=== PATIENT | male | born 1960 | race Caucasian/White ===

== ENCOUNTER 2020-01-23 11:37 | Emergency (ER) | payer BC ==
[2020-01-23] MEDS ORDERED: Pantoprazole 80 MG in Sodium Chloride 0.9% 100 ML IV SCH (12:15)
[2020-01-23] MEDS ORDERED: Pantoprazole 40 MG Vial IVPUSH ONE (12:15)
[2020-01-23] MEDS ORDERED: Sodium Chloride 0.9% 1,000 ML IV SCH (12:15)
--- NOTE | 2020-01-23 12:20 | EDM.PDOC ---
ED HPI GENERAL MEDICAL PROBLEM - General Chief Complaint: Gastrointestinal Problem Stated Complaint: BLACK STOOL/VOMITING Time Seen by Provider: 01/23/20 12:14 Source of Information: Reports: Patient History Limitations: Reports: No Limitations - History of Present Illness INITIAL COMMENTS - FREE TEXT/NARRATIVE: 59-year-old male presents to the ED with chief complaint of dark black tarry stool passage x3 days. He has had 1 dark black tarry stool per day for the last 3 days. He did use Pepto-Bismol last evening for the first time. He has been having some mild dyspepsia symptoms recently. He does use Motrin and Aleve on a intermittent basis but stopped these about 10 days ago. His med list indicates that he is on meloxicam 7.5 mg daily. He is still taking this medication. Did have some yogurt this morning with the tablet. He has been on a combination of proton pump inhibitors including Nexium but currently has not been taking anything. He has a history of GERD. Most recently he was tried on sucralfate 1 g QID. Dates he does not feel dizzy upon standing but does feel rather weak and dyspneic on minimal exertion. No past history of upper GI bleeding. Has had a colonoscopy many years ago in [place]. A provider apparently has set him up for a colonoscopy and EGD I believe in [place] somewhere around the or 06 February. He denies any recent weight loss or change in appetite. Denies any abdominal cramping pain no previous abdominal surgery. Onset: Sudden Onset Date: 01/21/20 (Today is the third day of passage of dark black tarry stool.) Duration: Day(s):, Constant Location: Reports: Abdomen (Passage of dark black tarry stool or melena stool x3 days) Quality: Reports: Other (Mild upper abdominal epigastric burning discomfort intermittently.) Severity: Moderate Improves with: Reports: None Worsens with: Reports: None Context: Reports: Other (Continuous occurrence). Denies: Activity, Exercise, Lifting, Sick Contact, Trauma Associated Symptoms: Reports: No Other Symptoms, Cough, cough w sputum (Chronic cough from cigarette smoking.), Malaise, Shortness of Breath, Weakness (A little weak in his lower extremities with walking). Denies: Confusion, Chest Pain, Diaphoresis, Fever/Chills, Headaches ( Sputum production intermittently), Loss of Appetite, Nausea/Vomiting, Rash (Times on exertion), Seizure, Syncope Treatments SUPER[employer]ICATION: Reports: Other (see below) (Pepto-Bismol last night) Right Lower Abdomen Pain Score (Numeric/FACES): 0 - Related Data Allergies Allergy/AdvReac Type Severity Reaction Status Date / Time Penicillins Allergy Cannot Verified 01/23/20 11:52 Remember Home Meds: Home Meds Gabapentin [Neurontin] 300 mg PO DAILY 01/23/20 [History] Lansoprazole [Prevacid] 30 mg PO ASDIRECTED #42 capsule. 01/23/20 [Rx] Meloxicam 7.5 mg PO DAILY PRN 01/23/20 [History] [place]-3/DHA/Epa/Fish Oil [Fish Oil 500 MG Softgel] 300 mg PO DAILY 01/23/20 [History] Oxybutynin 5 mg PO DAILY 01/23/20 [History] Pantoprazole [ProTONIX IV] 40 mg PO DAILY 01/23/20 [History] Sucralfate 1 gram PO QID 01/23/20 [History] atorvaSTATin [Lipitor] 40 mg PO DAILY 01/23/20 [History] carvediloL [Carvedilol] 25 mg PO BID 01/23/20 [History] lisinopriL [Lisinopril] 10 mg PO DAILY 01/23/20 [History] Past Medical History Cardiovascular History: Reports: High Cholesterol, Hypertension Gastrointestinal History: Reports: Gastritis, GERD Genitourinary History: Reports: Other (See Below) (Urgency incontinence) Musculoskeletal History: Reports: Back Pain, Chronic (With sciatica in both upper legs at times more recently the left more so than the right.), Osteoarthritis Endocrine/Metabolic History: Reports: Obesity/BMI 30+ Social & Family History - Tobacco Use Tobacco Use Status *Q: Current Every Day Tobacco User Tobacco Use Within Last Twelve Months: Cigarettes (Pack per day. Is a [id number] history) - Alcohol Use Alcohol Use History: No ED ROS GENERAL - Review of Systems Review Of Systems: See Below Constitutional: Reports: Weakness, Fatigue. Denies: Fever, Chills, Decreased Appetite, Weight Loss HEENT: Reports: No Symptoms Respiratory: Reports: Shortness of Breath, Wheezing, Cough, Sputum. Denies: Pleuritic Chest Pain Cardiovascular: Reports: Blood Pressure Problem, Dyspnea on Exertion. Denies: Chest Pain (To brown sputum from cigarette smoking), Claudication, Edema, Lightheadedness, Orthopnea Endocrine: Reports: Fatigue (Times) GI/Abdominal: Reports: Abdominal Pain (He having some mild epigastric discomfort burning primarily.), Black Stool (Dark black melena stool for 3 days. 1/day). Denies: Nausea, Vomiting : Reports: Frequency, Urgency Musculoskeletal: Reports: Back Pain, Joint Pain, Other (Arthritic change primarily back and neck.) Skin: Reports: No Symptoms Neurological: Reports: Weakness. Denies: Confusion, Dizziness, Headache, Numbness, Paresthesia, Seizure, Syncope, Tingling, Tremors, Difficulty Walking Psychiatric: Reports: No Symptoms Hematologic/Lymphatic: Reports: No Symptoms Immunologic: Reports: No Symptoms ED EXAM, GI/ABD - Physical Exam Exam: See Below Exam Limited By: No Limitations General Appearance: Alert, WD/WN, No Apparent Distress, Other (Poor historian. Temperature is 36.7 heart rate was 80 in sinus respiratory rate 16 with O2 sats of 94 to 95% room air BP 148/90) Eyes: Bilateral: Normal Appearance (No blepharal pallor or scleral icterus.) Throat/Mouth: Normal Inspection, Other (Pharynx is diffusely erythematous from cigarette smoking.). No: Normal Teeth Head: Atraumatic, Normocephalic Neck: Normal Inspection, Supple, Non-Tender, Full Range of Motion. No: Carotid Bruit, Lymphadenopathy (L), Lymphadenopathy (R) Respiratory/Chest: No Respiratory Distress, No Accessory Muscle Use, Decreased Breath Sounds ( Of both upper anterior lungs that clears with coughing.), Rhonchi (Diffuse audible wheezing both mildly on inspiration but markedly on expiration bilaterally.), Wheezing. No: Lungs Clear, Normal Breath Sounds Cardiovascular: Normal Peripheral Pulses, Regular Rate, Rhythm, No Edema, No Gallop, No Murmur, No Rub GI/Abdominal Exam: Normal Bowel Sounds, Soft, Non-Tender, No Organomegaly, No Mass, Pelvis Stable, Other (Oertli obese. This limits ability to palpate solid organs.) Back Exam: Normal Inspection, Decreased Range of Motion (Pain throughout the lumbar spine on exam.) Extremities: No Pedal Edema, Other (Mild osteoarthritic change appreciated both knees.) Neurological: Alert, Oriented, CN II-XII Intact, Normal Cognition Psychiatric: Normal Affect, Normal Mood Skin Exam: Warm, Dry, Intact, Normal Color, No Rash #1 Interpretation EKG Date: 01/23/20 Time: 12:23 Rhythm: NSR Rate (Beats/Min): 77 [place]: Normal P-Wave: Enlarged QRS: Other (Letter left atrial hypertrophy early R wave transition V3 consider septal hypertrophy pattern) ST-T: Normal QT: Normal EKG Interpretation Comments: Borderline ECG Course - Vital Signs Last Recorded V/S: Last Vital Signs Temp 36.7 C 01/23/20 11:48 Pulse 79 01/23/20 11:48 Resp 16 01/23/20 11:48 BP 148/90 H 01/23/20 11:48 Pulse Ox 94 L 01/23/20 11:48 Orthostatic Blood Pressure [ 129/93 Standing] Orthostatic Blood Pressure [ 145/95 Sitting] Orthostatic Blood Pressure [ 135/94 Supine] - Orders/Labs/Meds Orders: Active Orders 24 hr Category Date Time Status Guaiac [OCCULT BLOOD DIAGNOSTIC] [OP] Stat Lab 01/23/20 12:14 Ordered PATIENT RETYPE [BBK] Routine Lab 01/23/20 14:05 Ordered URINALYSIS W/MICROSCOPIC [UA W/MICROSCOPIC] [URIN] Stat Lab 01/23/20 12:17 Ordered Labs: Laboratory Tests 01/23/20 01/23/20 01/23/20 Range/Units 12:25 12:25 12:25 WBC 7.87 (4.23-9.07) K/mm3 RBC 4.97 (4.63-6.08) M/mm3 Hgb 15.7 (13.7-17.5) gm/dl Hct 46.9 (40.1-51.0) % MCV 94.4 H (79.0-92.2) fl MCH 31.6 (25.7-32.2) pg MCHC 33.5 (32.2-35.5) g/dl RDW Std Deviation 45.1 H (35.1-43.9) fL Plt Count 208 (163-337) K/mm3 MPV 10.2 (9.4-12.3) fl Neut % (Auto) 55.5 (34.0-67.9) % Lymph % (Auto) 30.6 (21.8-53.1) % Foard % (Auto) 9.1 (5.3-12.2) % Eos % (Auto) 3.9 (0.8-7.0) Baso % (Auto) 0.8 (0.1-1.2) % Neut # (Auto) 4.36 (1.78-5.38) K/mm3 Lymph # (Auto) 2.41 (1.32-3.57) K/mm3 Foard # (Auto) 0.72 (0.30-0.82) K/mm3 Eos # (Auto) 0.31 (0.04-0.54) K/mm3 Baso # (Auto) 0.06 (0.01-0.08) K/mm3 ESR (0-15) mm/hr PT 11.4 (9.7-12.0) SECONDS INR 1.07 APTT 26.1 (21.7-31.4) SECONDS Sodium 139 (136-145) mEq/L Potassium 4.1 (3.5-5.1) mEq/L Chloride 102 (98-107) mEq/L Carbon Dioxide 25 (21-32) mEq/L Anion Gap 16.1 H (5-15) BUN 21 H (7-18) mg/dL Creatinine 1.1 (0.7-1.3) mg/dL Est Cr Clr Drug Dosing 83.03 mL/min Estimated GFR (MDRD) > 60 (>60) mL/min BUN/Creatinine Ratio 19.1 H (14-18) Glucose 102 (74-106) mg/dL Calcium 10.0 (8.5-10.1) mg/dL Magnesium 1.5 L (1.8-2.4) mg/dl Total Bilirubin 0.4 (0.2-1.0) mg/dL AST 21 (15-37) U/L ALT 30 (16-63) U/L Alkaline Phosphatase 61 (46-116) U/L C-Reactive Protein 0.2 (<1.0) mg/dL NT-Pro-B Natriuret Pep (0-125) pg/mL Total Protein 7.5 (6.4-8.2) g/dl Albumin 3.7 (3.4-5.0) g/dl Globulin 3.8 gm/dL Albumin/Globulin Ratio 1.0 (1-2) Blood Type Gel Antibody Screen 01/23/20 01/23/20 01/23/20 Range/Units 12:25 12:25 12:25 WBC (4.23-9.07) K/mm3 RBC (4.63-6.08) M/mm3 Hgb (13.7-17.5) gm/dl Hct (40.1-51.0) % MCV (79.0-92.2) fl MCH (25.7-32.2) pg MCHC (32.2-35.5) g/dl RDW Std Deviation (35.1-43.9) fL Plt Count (163-337) K/mm3 MPV (9.4-12.3) fl Neut % (Auto) (34.0-67.9) % Lymph % (Auto) (21.8-53.1) % Foard % (Auto) (5.3-12.2) % Eos % (Auto) (0.8-7.0) Baso % (Auto) (0.1-1.2) % Neut # (Auto) (1.78-5.38) K/mm3 Lymph # (Auto) (1.32-3.57) K/mm3 [place] # (Auto) (0.30-0.82) K/mm3 Eos # (Auto) (0.04-0.54) K/mm3 Baso # (Auto) (0.01-0.08) K/mm3 ESR 6 (0-15) mm/hr PT (9.7-12.0) SECONDS INR APTT (21.7-31.4) SECONDS Sodium (136-145) mEq/L Potassium (3.5-5.1) mEq/L Chloride (98-107) mEq/L Carbon Dioxide (21-32) mEq/L Anion Gap (5-15) BUN (7-18) mg/dL Creatinine (0.7-1.3) mg/dL Est Cr Clr Drug Dosing mL/min Estimated GFR (MDRD) (>60) mL/min BUN/Creatinine Ratio (14-18) Glucose (74-106) mg/dL Calcium (8.5-10.1) mg/dL Magnesium (1.8-2.4) mg/dl Total Bilirubin (0.2-1.0) mg/dL AST (15-37) U/L ALT (16-63) U/L Alkaline Phosphatase (46-116) U/L C-Reactive Protein (<1.0) mg/dL NT-Pro-B Natriuret Pep 26 (0-125) pg/mL Total Protein (6.4-8.2) g/dl Albumin (3.4-5.0) g/dl Globulin gm/dL Albumin/Globulin Ratio (1-2) Blood Type A NEGATIVE Gel Antibody Screen Negative Meds: Medications Discontinued Medications Generic Name Dose Route Start Last Admin Trade Name Abdonq PRN Reason Stop Dose Admin Sodium Chloride 1,000 mls @ 150 mls/hr 01/23/20 12:15 01/23/20 13:32 Normal Saline IV 150 mls/hr ASDIRECTED JENNIFER Administration Pantoprazole Sodium 80 mg/ 100 mls @ 10 mls/hr 01/23/20 12:15 01/23/20 13:34 Sodium Chloride IV 10 mls/hr Q10H JENNIFER Administration Pantoprazole Sodium 80 mg 01/23/20 12:15 01/23/20 13:35 Protonix Iv IVPUSH 01/23/20 12:16 80 mg BOLUS ONE Administration - Radiology Interpretation Free Text/Narrative:: 59-year-old male presents to the ED with a 3-day history of dark black melena stools passage once per day including this morning. Of note he did take Pepto- Bismol last evening for the first time. Patient has had dyspepsia symptoms off and on for many years. This includes GERD. He has been off and on numerous proton pump inhibitors for many years. Recently tried on sucralfate 1 g 4 times daily but is not using this. He has a history of arthritis primarily involving diffuse low back pain with radiculopathy into his lower extremities. He uses a large amount of Motrin primarily but stopped this 10 days ago at the request of his physician. His med list suggest that he is also on meloxicam 18 mg a day. Clinically he appears to be stable from upper GI blood loss. At no time he has had any reported hematemesis. - Re-Assessments/Exams Free Text/Narrative Re-Assessment/Exam: 01/23/20 12:37 59-year-old male presents to the ED with a 3-day history of dark black melena stools suggesting an upper GI blood loss. He has been taking Motrin and Aleve off and on for many years for low back pain and sciatica. He is also listed on being on meloxicam 7.5 mg a day and he did take 1 this morning. He did take some Pepto-Bismol last night but he was already having dark black tarry stools before this. He is having 1 black tarry stool per day. Clinically he does not appear to be anemic. Plan orthostatic BPs to be done. Routine labs and a chest x-ray to be done. He has a smoker and clinically has significant emphysematous change. Of note his orthostatic BP lying is 135/94 with a heart rate of 75. Sitting his BP is 145/92 with a heart rate of 83 and standing BP dropped slightly to 129/93 with a heart rate of 85. 01/23/20 13:32 Chest x-ray reveals unremarkable lung parenchyma with no consolidation. No pleural effusion no pneumothorax. Heart and mediastinum are normal with no cardiomegaly.PT is 11.4 with an INR of 1.07 PTT is 26.1. 01/23/20 14:13 chest x-ray done portably reveals mildly hyperinflated lung lundberg bilaterally. Mild cardiomegaly. Evidence of the right pulmonary artery appreciated. No vascular congestion no pleural effusion no pneumothorax. S edimentation rate is 6 01/23/20 14:25 Sodium is 139 with a potassium of 4.1 chloride 102 with a bicarb of 25. Anion gap is slightly elevated at 16.1. BUN is 21 with a creatinine of 1.1 and a GFR greater than 60. BUN/creatinine ratio is 19.1. Glucose is 102 calcium is 10.0 magnesium slightly low at 1.5 liver function is normal C- reactive protein 0.2 BNP is 26 total protein 7.5 with an albumin fraction of 3.7. Therefore the patient appears to be a stable upper GI bleed. He is already prescheduled by his primary care provider in [place] for a colonoscopy and upper GI endoscopy on February 05 I believe. This is to be done in [place]. At this point time he is stable and I am going to put him on Prevacid 30 mg twice daily for 1 week bedtime and morning and then 30 mg at bedtime until he is followed up by gastroenterology to make sure he does not have H. pylori gastritis to have caused a peptic ulcer. Less likely could have a lesion in the descending colon Departure - Departure Time of Disposition: 14:26 Disposition: Home, Self-Care 01 Condition: Fair Clinical Impression: Gastrointestinal bleeding, upper Adverse effects of medication Qualifiers: Encounter type: initial encounter Qualified Code(s): T50.905A - Adverse effect of unspecified drugs, medicaments and biological substances, initial encounter - Discharge Information *PRESCRIPTION DRUG MONITORING PROGRAM REVIEWED*: Not Applicable *COPY OF PRESCRIPTION DRUG MONITORING REPORT IN PATIENT CHELI: Not Applicable Prescriptions: Lansoprazole [Prevacid] 30 mg PO ASDIRECTED #42 capsule.dr Instructions: Gastrointestinal Bleeding, [id number] Referrals: Sharda Mckinney, PRESENTATION SPECIALIST [Primary Care Provider] - Forms: ED Department Discharge Additional Instructions: Evaluation in the emergency room today in regards to passage of dark black tarry stools for the last 3 days indicating a suspect upper GI blood loss most likely from an ulcer in the stomach or first part of the small bowel called the duodenum. This in turn is most likely due to medication adverse effects i.e. Motrin Aleve and medication meloxicam that you were taking for chronic back pain and arthritis. All of these medicines are to be discontinued and we did take away the meloxicam from your bag of medications that your request. You were treated in the emergency room with intravenous fluids and IV Protonix 40 mg and IV Protonix drip. Diet is to be fairly light over the next couple of days as there would be a blood clot on an ulcer in the stomach that could be dislodged by hard food. Suggest diet to be quite soft things like bread, mashed potatoes, soups etc. No alcohol is to be used at all for the next 2 weeks. Tylenol is okay to take for pain if needed as it will not cause ulceration. Medication is to be Prevacid 30 mg in the morning and at bedtime for the next week and then once at bedtime for another 5 weeks to heal an ulcer completely. Note: cigarette smoking also delays and also her ability to heal. Continue all other medications as previously prescribed. Continue the sucralfate 4 times daily for the next 5 days but after that you could stop it. Wrongly encouraged to follow- up with truck crane operator helper for colonoscopy and upper GI endoscopy in early February as previously booked. You would need to return to our hospital if you develops bright red bleeding per rectum or dark black tarry stools more than 3 times in 1 day. Usually with the above medication and stopping the meloxicam stools may be black for another day or 2 and then usually turn back to a normal color. Sepsis Event Note (ED) - Evaluation Sepsis Screening Result: No Definite Risk - Focused Exam Vital Signs: Vital Signs Temp Pulse Resp BP Pulse Ox 01/23/20 11:48 36.7 C 79 16 148/90 H 94 L - My Orders Last 24 Hours: My Active Orders 01/23/20 12:14 Guaiac [OCCULT BLOOD DIAGNOSTIC] [OP] Stat 01/23/20 12:17 URINALYSIS W/MICROSCOPIC [UA W/MICROSCOPIC] [URIN] Stat 01/23/20 14:05 PATIENT RETYPE [BBK] Routine - Assessment/Plan Last 24 Hours: My Active Orders 01/23/20 12:14 Guaiac [OCCULT BLOOD DIAGNOSTIC] [OP] Stat 01/23/20 12:17 URINALYSIS W/MICROSCOPIC [UA W/MICROSCOPIC] [URIN] Stat 01/23/20 14:05 PATIENT RETYPE [BBK] Routine
--- NOTE | 2020-01-23 13:05 | CR ---
PROCEDURE INFORMATION: Exam: XR Chest, 1 View Exam date and time: 01/23/2020 12:29 PM Age: 59 years old Clinical indication: Condition or disease; Lung condition and disease; Copd and emphysema; Complications not specified; Type not specified TECHNIQUE: Imaging protocol: XR of the chest Views: 1 view. COMPARISON: No relevant prior studies available. FINDINGS: Lungs: Unremarkable. No consolidation. Pleural space: Unremarkable. No pleural effusion. No pneumothorax. Heart/Mediastinum: Unremarkable. No cardiomegaly. Bones/joints: Unremarkable. IMPRESSION: No acute findings. Thank you for allowing us to participate in the care of your patient. Dictated and Authenticated by: Ryan Aguayo MD 01/23/2020 2:04 PM Central Time ([place] & [place]) ANNIE
== END 2020-01-23 15:04 | disposition home or self-care (01) ==
LOC: JD.ED 11:37
DX: K92.2 Gastrointestinal hemorrhage, unspecified (principal); T37.8X5A Adverse effect of other specified systemic anti-infectives and antiparasitics, initial encounter; I10 Essential (primary) hypertension; E78.00 Pure hypercholesterolemia, unspecified; K21.9 Gastro-esophageal reflux disease without esophagitis; F17.210 Nicotine dependence, cigarettes, uncomplicated; E66.9 Obesity, unspecified; Z68.36 Body mass index [BMI] 36.0-36.9, adult; Z88.0 Allergy status to penicillin; Z79.899 Other long term (current) drug therapy
CPT/HCPCS: 36415; 71045; 80053; 83735; 83880; 85025; 85610; 85652; 85730; 86140; 86850; 86900; 86901; 93005; 96365; 99285; C9113; J7030; 93010; 99284